=== PATIENT | male | born 1965 | race Caucasian/White ===

== ENCOUNTER 2018-03-05 21:49 | Emergency (ER) | payer OTHER ==
[2018-03-05 22:25] VITALS: BP 160/64; PULSE 75; RESP 18; TEMP 97.8
[2018-03-05] MEDS ORDERED: SODIUM CHLORIDE 0.9% 1,000 ML BAG ONE (23:30)
[2018-03-05] MEDS ORDERED: KETOROLAC 30 MG/ML 1 ML VIAL ONE (23:30)
[2018-03-05] MEDS ORDERED: ONDANSETRON 4 MG/2 ML VIAL ONE (23:30)
[2018-03-06 05:40] LABS: Basophils % (A) 0 %; Eosinophils # (A) 0.2 k/uL (0-0.7); Eosinophils % (A) 1 %; HCT 44.7 % (39.0-53.0); HGB 16.4 gm/dL (13.0-17.5); Hyperchromasia Slight; Lymphocytes # (A) 1.9 k/uL (1.0-4.8); Lymphocytes % (A) 13 %; MCH 32.5 pg (25.0-35.0); MCHC 36.7 g/dL (31.0-37.0); MCV 88.6 fL (80.0-100.0); Mean Platelet Volume 6.5; Monocytes # (A) 0.6 k/uL (0-1.0); Monocytes % (A) 4 %; Neutrophils # (A) 11.2 k/uL (1.3-7.7); Neutrophils % (A) 80 %; Platelet Count 395 k/uL (150-450); RBC 5.05 m/uL (4.30-5.90); RDW 12.1 % (11.5-15.5); WBC 14.1 k/uL (3.8-10.6)
[2018-03-06 05:56] LABS: Appearance,Urine Clear (Clear); Bilirubin,Urine Negative (Negative); Blood,Urine Moderate (Negative); Calcium Oxalate Crystals,Urine Occasional /hpf; Color,Urine Yellow; Glucose,Urine (UA) Negative (Negative); Ketones,Urine 2+ (Negative); Leukocyte Esterase,Urine Small (Negative); Mucus,Urine Occasional /hpf; Nitrite,Urine Negative (Negative); PH, Urine 6.5 (5.0-8.0); Protein,Urine 1+ (Negative); RBC,Urine 140 /hpf (0-5); Specific Gravity,Urine 1.014 (1.001-1.035); Urobilinogen,Urine <2.0 mg/dL (<2.0); WBC,Urine 14 /hpf (0-5)
[2018-03-06 06:23] LABS: ALT 46 U/L (21-72); AST 38 U/L (17-59); Albumin 4.7 g/dL (3.5-5.0); Alkaline Phosphatase 69 U/L (38-126); Amylase 110 U/L (30-110); Anion Gap 17 mmol/L; Blood Urea Nitrogen 20 mg/dL (9-20); Calcium 10.5 mg/dL (8.4-10.2); Carbon Dioxide 25 mmol/L (22-30); Chloride 101 mmol/L (98-107); Glucose 107 mg/dL (74-99); Lipase 205 U/L (23-300); Potassium 3.7 mmol/L (3.5-5.1); Sodium 143 mmol/L (137-145); Total Bilirubin 0.4 mg/dL (0.2-1.3); Total Protein 7.6 g/dL (6.3-8.2)
--- NOTE | 2018-03-06 12:42 | CT ---
EXAMINATION TYPE: CT abdomen pelvis wo con DATE OF EXAM: 03/06/2018 COMPARISON: NONE HISTORY: Right flank pain CT DLP: mGycm Automated exposure control for dose reduction was used. TECHNIQUE: Helical acquisition of images was performed from the lung bases through the pelvis. FINDINGS: Lung bases are clear. There is no pleural effusion. Heart size is normal. Liver spleen pancreas appear normal. Bile ducts are not dilated. Gallbladder appears normal. There are multiple bilateral renal calculi. These measure up to 12 mm. There is an 8 mm calculus in t he proximal right ureter with right-sided hydronephrosis. This is near the ureteropelvic junction. There is no retroperitoneal adenopathy. I see no intestinal wall thickening. There are no dilated loo ps. Prostate is slightly enlarged with calcification. Bladder distends smoothly. There is no ascites. There is no sign of free air. Appendix is not definitely seen. I see no bony destructive process. IMPRESSION: MULTIPLE RENAL CALCULI. OBSTRUCTING 8 MM CALCULUS IN THE PROXIMAL RIGHT URETER. SPONDYLOTIC CHANGES N OTED IN THE LUMBAR SPINE.
== END 2018-03-06 01:24 | disposition home or self-care (01) ==
LOC: EC 21:49
DX: N20.1 Calculus of ureter (principal); Z87.891 Personal history of nicotine dependence; Z79.1 Long term (current) use of non-steroidal anti-inflammatories (NSAID); Z79.899 Other long term (current) drug therapy; Z87.19 Personal history of other diseases of the digestive system
CPT/HCPCS: 99284; 96374; 96375; 96361; 36415; 80053; 82150; 83690; 85025; 82272; 81001; 74176; J2405; J1885

== ENCOUNTER → 2018-03-11 | Outpatient (CLI) | payer OTHER ==
--- NOTE | 2018-03-11 11:21 | XR ---
EXAMINATION TYPE: XR KUB DATE OF EXAM: 03/11/2018 10:36 AM CLINICAL HISTORY: Nephrolithiasis TECHNIQUE: Single supine KUB image of the abdomen is obtained. COMPARISON: 03/06/2018. FINDINGS: The previously seen 8 mm calculus within the right ureter at the level of the L3-L4 interve rtebral disc space is redemonstrated and has not passed in the interim. There are additional bilatera l renal calculi (at least 3 on the right measuring 6 mm in the upper pole region, 5 mm in the mid gosia e region, and 3 mm in the lower pole region. In the left upper pole region there is a 9 mm calculus. Scattered gas is seen in non-distended small bowel loops. Gas and fecal material is seen in non-diste nded colon. Osseous structures are intact with moderate degenerative changes of the lumbar spine. IMPRESSION: 1. 8mm obstructing right ureteral calculus is located at the L3-L4 intervertebral disc space and has not passed in the interim. 2. Additional bilateral renal calculi, presumed nonobstructing.
[2018-03-11 11:34] LABS: Appearance,Urine Clear (Clear); Bacteria,Urine Occasional /hpf; Bilirubin,Urine Negative (Negative); Blood,Urine Moderate (Negative); Color,Urine Yellow; Glucose,Urine (UA) Negative (Negative); Ketones,Urine Negative (Negative); Leukocyte Esterase,Urine Large (Negative); Mucus,Urine Few /hpf; Nitrite,Urine Negative (Negative); Protein,Urine 1+ (Negative); RBC,Urine 30 /hpf (0-5); Specific Gravity,Urine 1.024 (1.001-1.035); Urobilinogen,Urine <2.0 mg/dL (<2.0); WBC,Urine 51 /hpf (0-5)
== END | disposition home or self-care (01) ==
LOC: RADXRMAIN 10:22
PROVIDERS: ATTEND Urology
DX: N20.2 Calculus of kidney with calculus of ureter (principal)
CPT/HCPCS: 74018; 81001

== ENCOUNTER 2018-04-08 07:12 | Day surgery (SDC) | payer OTHER ==
[2018-04-03 10:52] VITALS: BMI 27.4
[~2018-04-08 07:12] MED LIST: DEXAMETHASONE SOD PHOSPHATE 10 MG/ML 1 ML VIAL IV ONE; LACTATED RINGERS 1,000 ML IV SCH; LIDOCAINE 1% 20 ML VIAL (10MG/ML) FOR IV START INTRADERMA PRN; MORPHINE SULFATE 4 MG/ML SYRINGE IV PRN; ONDANSETRON 4 MG/2 ML VIAL IVP ONE; Pre Op ABX Message 1 EACH MISC MISCELLANE ONE
[2018-04-08 07:54] VITALS: TEMP 98.3
--- NOTE | 2018-04-08 08:09 | XR ---
EXAMINATION TYPE: XR KUB DATE OF EXAM: 04/08/2018 CLINICAL DATA: 53 year-old male right ureteral calculus. Lithotripsy., [facility] COMPARISON: 03/11/2018 FINDINGS: Nonobstructive bowel gas pattern with moderate stool burden. 2 calculi are seen on the right measurin g 6 mm each. One calculus is seen on the left measuring 1 cm. Previous right paramedian mid abdominal calcification is not clearly seen on the current study and may have passed to project over the spine or sacrum. IMPRESSION: Bilateral nephrolithiasis measuring up to 6 mm on the right and 1 cm on the left. The previous right paramedian mid abdominal calcification is not clearly seen on the present exam.
[2018-04-08] MEDS ORDERED: GLYCOPYRROLATE 0.2 MG/ML 2 ML VIAL ONE (08:20)
[2018-04-08] MEDS ORDERED: fentaNYL (PF) 50 MCG/ML 2 ML AMP ONE (08:20)
[2018-04-08] MEDS ORDERED: PROPOFOL 10 MG/ML 20 ML VIAL IV ONE (08:20)
[2018-04-08] MEDS ORDERED: LIDOCAINE 1% INJ 10MG/ML (20 ML MDV) ONE (08:20)
[2018-04-08] MEDS ORDERED: KETAMINE 10 MG/ML 20 ML VIAL ONE (08:20)
[2018-04-08] MEDS ORDERED: MIDAZOLAM 2 MG/2 ML VIAL ONE (08:20)
[2018-04-08] MEDS ORDERED: FUROSEMIDE 10 MG/ML 2 ML VIAL ONE (08:20)
--- NOTE | 2018-04-08 08:54 | P.OP ---
Date of Procedure: 04/08/18 Preoperative Diagnosis: Right ureteral stone Postoperative Diagnosis: Same Procedure(s) Performed: ESWL right, 2500 shocks at level Anesthesia: MAC Surgeon: Mookie Painting Pathology: none sent Condition: stable Disposition: PACU Indications for Procedure: The patient is a 53-year-old gentleman who has bilateral renal stones 6 mm midureteral stone who comes for shockwave lithotripsy Description of Procedure: The right ureteral stone was seen in 2 views of fluoroscopy in the mid ureter. 2500 shocks at energy level administered. Stone appears to fracture. Given 10 mg Lasix during the procedure. Then procedure the patient awake and returned recovery condition. Tell procedure well and will be discharged home upon recovery.
[2018-04-08 09:23] VITALS: BP 113/71; PULSE 73; RESP 18
== END 2018-04-08 10:03 | disposition home or self-care (01) ==
LOC: ORWHC2ENDO 07:12
PROVIDERS: ATTEND Urology
DX: N20.2 Calculus of kidney with calculus of ureter (principal); Z87.891 Personal history of nicotine dependence; F39 Unspecified mood [affective] disorder; Z79.1 Long term (current) use of non-steroidal anti-inflammatories (NSAID); Z79.891 Long term (current) use of opiate analgesic; Z79.899 Other long term (current) drug therapy
CPT/HCPCS: 74018; 50590; J2250; J1100; J1940; J2405; J2001; J3010; J2704

== ENCOUNTER → 2018-04-16 | Outpatient (CLI) | payer OTHER ==
--- NOTE | 2018-04-16 12:06 | XR ---
EXAMINATION TYPE: XR KUB DATE OF EXAM: 04/16/2018 HISTORY: Pain Comparison: None.Single KUB is submitted for interpretation. Findings: Right renal calculi: 6.4 mm calculus mid pole right kidney. Additional calculus upper pole right kidn ey measuring 4.5 mm. Several smaller calculi mid to lower pole right kidney. Right ureteral calculi: Proximal right ureteral calculus noted measuring 6.1 mm overlying the right L 3 transverse process. Left renal calculi: Stable left renal calculus measuring approximately 9.7 mm. Left ureteral calculi: None Visualized. Pelvic calcifications: None Visualized. Bowel gas pattern is unremarkable. No free air. No mass effects. IMPRESSION: 1. Right ureteral calculus and bilateral renal calculi as noted.
== END | disposition home or self-care (01) ==
LOC: RADXRMAIN 11:35
PROVIDERS: ATTEND Urology
DX: N20.2 Calculus of kidney with calculus of ureter (principal)
CPT/HCPCS: 74018

== ENCOUNTER → 2018-05-16 | Outpatient (CLI) | payer OTHER ==
--- NOTE | 2018-05-16 12:39 | XR ---
EXAMINATION TYPE: XR KUB DATE OF EXAM: 05/16/2018 HISTORY: Pain Comparison: None.Single KUB is submitted for interpretation. Findings: Right renal calculi: 5 mm calculus mid pole right kidney. Previously noted calculus overlying the rig ht ureter is is not identified with absolute certainty at this time. Right ureteral calculi: None Visualized. Left renal calculi: No change in left renal calculus measuring approximately 1 cm versus 1 cm previo usly. Left ureteral calculi: None Visualized. Pelvic calcifications: None Visualized. Bowel gas pattern is unremarkable. No free air. No mass effects. IMPRESSION: 1. Bilateral nephrolithiasis. 2. Previously noted or suspected right ureteral calculus is not reproduced at this time.
== END | disposition home or self-care (01) ==
LOC: RADXRMAIN 12:14
PROVIDERS: ATTEND Urology
DX: N20.0 Calculus of kidney (principal)
CPT/HCPCS: 74018

== ENCOUNTER → 2018-06-12 | Outpatient (CLI) | payer OTHER ==
--- NOTE | 2018-06-12 23:41 | MR ---
EXAMINATION TYPE: MR lumbar spine wo con DATE OF EXAM: 06/12/2018 COMPARISON: Prior MRI lumbar spine February 22, 2017 HISTORY: Lumbago per order. Severe low back pain into left buttocks leg and foot for 8 years per angie ent. TECHNIQUE: Multiplanar, multisequence imaging of the lumbar spine is performed without IV contrast. FINDINGS: Sagittal images of the lumbar spine show vertebral body heights to remain satisfactory. Str aightening of lumbar spine is redemonstrated. Multilevel disc desiccation is again seen. There is per sistent advanced disc space narrowing L4-L5 level. There is now advanced disc space narrowing L3-L4 l evel and moderate to advanced disc space narrowing L5-S1 levels. Posterior disc herniations remain pr esent at these levels on sagittal images more prominent versus prior. The conus medullaris remains no rmal in position and signal ending mid L1 level. There is heterogeneous endplate changes L3-S1 levels with predominantly Modic type I and type II degenerative changes redemonstrated. Mild to moderate mu ltilevel anterior spurring is redemonstrated. Axial images at T12-L1 level to remain within normal limits. Axial images at L1-L2 level redemonstrate mild broad disc bulge mildly effacing anterior thecal sac w ith mild facet degenerative changes bilaterally. Bilateral neural foramina are patent. No significant change from prior MRI. Axial images at L2-L3 level show mild broad disc bulge and mild facet degenerative changes bilaterall y. There is mild effacement of the anterior and posterior lateral thecal sac. Bilateral neural forami na are patent. No significant change from prior. Axial images at L3-L4 level show moderate facet degenerative changes and ligamentum flavum hypertroph y. There is moderate to advanced broad disc bulge with posterior spurring. There is effacement of the anterior and posterior lateral thecal sac more prominent versus prior axial image 18. There is persi stent moderate to severe right greater than left neural foraminal narrowing with encroachment on righ t L3 nerve once again suspected sagittal image 11. Can't exclude encroachment at left L3 nerve. No si gnificant change in neural foraminal narrowing from prior. Axial images at L4-L5 level show moderate to advanced facet degenerative changes bilaterally with lig amentum flavum hypertrophy with progression from prior study. There is moderate broad disc bulge with left lateral disc protrusion component. There is effacement of the anterior and posterior lateral th ecal sac. There is moderate to advanced bilateral neural foraminal narrowing with possible early encr oachment on both L4 nerves, left-sided neural encroachment is slightly less prominent versus prior. Axial images at L5-S1 level redemonstrate moderate to advanced facet degenerative changes and ligamen ishaan flavum hypertrophy. There is broad disc bulge identified more prominent versus prior causing ante rior and posterior lateral thecal sac effacement on axial image 7 more prominent versus prior. There is moderate to advanced left greater than right neural foraminal narrowing with encroachment on left L5 nerve present more prominent versus prior and probable encroachment on right L5 nerve redemonstrat ed. Paraspinal muscle bulk is maintained. No suspicious retroperitoneal findings are seen. IMPRESSION: Multilevel degenerative changes in lumbar spine as detailed above quite pronounced for pa tient's age with some progression in findings in mid to lower lumbar levels noted from most recent pr ior MRI.
== END | disposition home or self-care (01) ==
LOC: RADMRIMAIN 21:27
PROVIDERS: ATTEND Psychiatry & Neurology Neurology
DX: M47.816 Spondylosis without myelopathy or radiculopathy, lumbar region (principal)
CPT/HCPCS: 72148

== ENCOUNTER → 2018-06-20 | Outpatient (CLI) | payer OTHER ==
[2018-06-20 14:14] LABS: Anion Gap 9 mmol/L; Blood Urea Nitrogen 17 mg/dL (9-20); Carbon Dioxide 30 mmol/L (22-30); Chloride 102 mmol/L (98-107); Glucose 97 mg/dL (74-99); Potassium 4.9 mmol/L (3.5-5.1); Sodium 141 mmol/L (137-145)
== END | disposition home or self-care (01) ==
LOC: LABWHC1 13:30
PROVIDERS: ATTEND Urology
DX: Z01.812 Encounter for preprocedural laboratory examination (principal); N20.2 Calculus of kidney with calculus of ureter; Z79.899 Other long term (current) drug therapy
CPT/HCPCS: 36415; 80048

== ENCOUNTER 2018-06-26 07:50 | Day surgery (SDC) | payer OTHER ==
[2018-06-19 15:12] VITALS: BMI 26.6
--- NOTE | 2018-06-25 20:28 | P.GSHP ---
History of Present Illness H&P Date: 06/25/18 Chief Complaint: Right renal calculus The patient underwent ESWL treatment of a 5 mm mid right ureteral calculus on . He passed some sand but nothing larger than 1 mm in size. The fragments were calcium oxylate monohydrate/uric acid. KUB on 05/16 did not identify a definite residual ureteral calculus. The patient has a 5 mm calculus that remains in the mid pole of the right kidney. After reviewing treatment options the patient has elected for ureteroscopy with lithotripsy for further treatment of any residual ureteral calculus fragments as well as treatment of the right renal calculus. - Constitutional Constitutional: Denies chills, Denies fever - Cardiovascular Cardiovascular: Denies chest pain, Denies palpitations, Denies shortness of breath - Respiratory Respiratory: Denies cough, Denies wheezing - Gastrointestinal Gastrointestinal: Denies abdominal pain - Genitourinary (Female) Genitourinary: Reports as per HPI Past Medical History Past Medical History: Osteoarthritis (OA) Additional Past Medical History / Comment(s): kidney stones, back pain, left carpal tunnel, right inguinal hernia repair History of Any Multi-Drug Resistant Organisms: None Reported Past Surgical History: Hernia Repair Additional Past Surgical History / Comment(s): BILATERAL INGUINAL HERNIA REPAIR, , LASIK, ESWL right ureteral calculus 04/08/2018 Past Anesthesia/Blood Transfusion Reactions: No Reported Reaction Smoking Status: Former smoker - Past Family History Mother Family Medical History: No Reported History Medications and Allergies Home Medications Medication Instructions Recorded Confirmed Type Citalopram Hydrobromide [CeleXA] 40 mg PO DAILY 03/05/18 06/19/18 History HYDROcodone/APAP 7.5-325MG [[place] 1 tab PO TID 03/05/18 06/19/18 History 7.5-325] Meloxicam [Mobic] 7.5 mg PO DAILY 03/05/18 06/19/18 History buPROPion [Wellbutrin] 100 mg PO BID 03/05/18 06/19/18 History Dextroamphetamine/Amphetamine 20 mg PO BID 06/19/18 06/19/18 History [Adderall] LORazepam [Ativan] 1 mg PO DAILY 06/19/18 06/19/18 History Allergies Allergy/AdvReac Type Severity Reaction Status Date / Time No Known Allergies Allergy Verified 06/19/18 15:02 Surgical - Exam - General well developed, well nourished, no distress - ENT no hearing loss - Neck no masses, no lymphadectomy - Cardiovascular Rhythm: regular Abnormal Heart Sounds: no systolic murmur, no diastolic murmur - Abdomen Abdomen: soft, non tender, no organomegaly - Genitourinary normal penis with no external lesions, testicles non-tender Assessment and Plan (1) Right kidney stone Narrative/Plan: The patient will undergo cystoscopy with right ureteropyeloscopy for treatment of any residual right ureteral calculus fragments as well as treatment of the right renal caculus. He is aware of the risks which include anesthesia, bleeding , infection, ureteral injury and the possible need for a JJ catheter post op. Status: Acute Code(s): N20.0 - CALCULUS OF KIDNEY SNOMED Code(s): 93762258
[~2018-06-26 07:50] MED LIST changes: -LACTATED RINGERS 1,000 ML IV SCH; +MIDAZOLAM 2 MG/2 ML VIAL IV PRN; -MORPHINE SULFATE 4 MG/ML SYRINGE IV PRN; -Pre Op ABX Message 1 EACH MISC MISCELLANE ONE; +ceFAZolin 1,000 MG in DEXTROSE/WATER 1 50ML.BAG IVPB ONE; +fentaNYL (PF) 50 MCG/ML 2 ML AMP IV PRN
[2018-06-26] MEDS: LACTATED RINGERS 1,000 ML IV SCH ×2 (08:33→09:35)
[2018-06-26] MEDS ORDERED: MIDAZOLAM 2 MG/2 ML VIAL ONE (09:37)
[2018-06-26] MEDS ORDERED: PROPOFOL 10 MG/ML 20 ML VIAL IV ONE (09:37)
[2018-06-26] MEDS ORDERED: fentaNYL (PF) 50 MCG/ML 2 ML AMP ONE (09:37)
[2018-06-26] MEDS ORDERED: LIDOCAINE 1% INJ 10MG/ML (20 ML MDV) ONE (09:37)
[2018-06-26] MEDS ORDERED: IOPAMIDOL-370 50ML BTL MISCELLANE ONE ×2 (09:56)
[2018-06-26] MEDS ORDERED: LACTATED RINGERS 1,000 ML IV ONE (11:12)
[2018-06-26 11:40] VITALS: TEMP 97.4
--- NOTE | 2018-06-26 12:02 | P.OP ---
Date of Procedure: 06/26/18 Preoperative Diagnosis: Right ureteral and right renal calcului Postoperative Diagnosis: Right ureteral and right renal calcului Procedure(s) Performed: Cystoscopy with right retrograde ureterogram, right ureteroscopy with lithotripsy for treatment of right ureteral calculus and right ureteropyeloscopy with lithotripsy for treatment of right renal calculus. Placement of right double-J catheter. Anesthesia: GETA Surgeon: Gareth Torres Estimated Blood Loss (ml): 0 Pathology: other (Fragments of right ureteral and right renal calculi) Condition: stable Disposition: PACU Indications for Procedure: The patient is a 53-year-old male with a history of urolithiasis who underwent ESWL treatment of a mid right ureteral calculus on 04/08/2018. The patient only past sand following the procedure. A KUB was nondiagnostic as far as confirming any residual calculus in the ureter. The patient does have a 5 mm right renal calculus. Right ureteroscopy is planned to reevaluate the ureter with the intent of removing any residual ureteral calculus. Treatment of the right renal calculus is planned under the same anesthetic. Description of Procedure: The patient was taken to the operating suite where adequate general anesthesia via orotracheal intubation was instituted. The patient was placed in the dorsal lithotomy position with his legs suspended from padded German stirrups. Sequential pneumatic compression stockings were applied to the lower legs. The genitalia was prepped with Betadine soap, painted with Betadine solution and draped in a sterile fashion. The penile and prostatic urethra traversed under direct vision using the 19-Maltese cystoscope sheath and 30 lens. Anterior urethra is unremarkable. The prostatic urethra showed evidence of mild lateral lobe enlargement consistent with the patient's age. The bladder was examined. Both ureteral orifice ease were normal location and configuration. A 1-2 mm oculus fragment was noted on the floor the bladder. A right retrograde ureterogram was performed using an 8-Maltese cone-tipped catheter. A filling defect consistent with a ureteral calculus was identified in the right ureter at the L4 level. A 0.035 straight Glidewire was advanced through the right ureteral orifice and then under fluoroscopic guidance up to the region of the renal pelvis. The cystoscope was withdrawn leaving the Glidewire in place. A 13-Maltese ureteral reentry sheath with 11-Maltese obturator was advanced over the Glidewire using fluoroscopy for guidance and positioned so that the proximal and of the reentry sheath was near the pelvic brim. Uteroscopy was performed using the flexible ureteroscope. The calculus in the right ureter was identified. It was broken down into multiple small fragments using the 365 fiber and the holmium laser at a setting of 600 mJ and 6 cps. The calculus fragments were then removed from the ureter using a 1.9-Maltese nitinol stone basket. All fragments were removed from the ureter. The 0.035 Glidewire was then readvanced through the reentry sheath and the Maltese obturator was advanced over it and into the reentry sheath. The reentry sheath was then repositioned so that the proximal and of the reentry sheath was in the proximal ureter. Ureteroscopy and pyeloscopy was then performed using the flexible ureteroscope. A small calculus fragments were noted in a middle pole calyx and will broken down and removed using the nitinol stone basket. A 5 mm calculus was identified in a different middle pole calyx. This was broken down using the holmium laser setting of 600 mJ and 6 cps. The calculus fragments were then removed. Completion procedure all calculus fragments larger than 1 mm had been removed. The remaining calyces were examined and no additional calculi were noted. Ureteroscope was withdrawn along with the reentry sheath and ureter was reexamined to ensure no fragments remained. The cystoscope was reintroduced into the bladder. The Glidewire was advanced through the right ureteral orifice and up to the region of the renal pelvis. A 6-Maltese by 24 cm double-J catheter was then advanced over the Glidewire and positioned so that the proximal end coiled in the region of the renal pelvis and the distal and coiled in the bladder. The bladder was drained and the cystoscope was withdrawn. The patient tolerated procedure well and left the operative room awake and in satisfactory condition. There is no blood loss. Patient will be discharged and will return in approximately 1 week at which time his double-J catheter will be removed.
[2018-06-26 12:41] VITALS: RESP 18
[2018-06-26] MEDS ORDERED: KETOROLAC 30 MG/ML 1 ML VIAL IVP ONE (12:49)
[2018-06-26] MEDS ORDERED: HYDROmorphone 1 MG/ML 1 ML SYRINGE IVP ONE (12:50)
[2018-06-26 13:09] VITALS: BP 130/89; PULSE 57
--- NOTE | 2018-06-26 16:13 | FL ---
Fluoroscopy HISTORY: Right ureteral calculus 40 seconds fluoroscopy time supplied to the referring clinician. 1 intraoperative C-arm images docum ent the procedure. See dictated report from urology.
== END 2018-06-26 13:40 | disposition home or self-care (01) ==
LOC: OR 07:50
PROVIDERS: ATTEND Urology
DX: N20.2 Calculus of kidney with calculus of ureter (principal); Z87.442 Personal history of urinary calculi; M19.90 Unspecified osteoarthritis, unspecified site; Z87.891 Personal history of nicotine dependence; F39 Unspecified mood [affective] disorder; Z79.1 Long term (current) use of non-steroidal anti-inflammatories (NSAID); Z79.891 Long term (current) use of opiate analgesic; Z79.899 Other long term (current) drug therapy
CPT/HCPCS: 82365; 74420; 52353; C1758 ×2; C1769; J2250; J1100; J2405; J2001; J3010; J1885; J1170; J0690; J2704; Q9967

== ENCOUNTER → 2018-07-30 | Outpatient (CLI) | payer OTHER ==
--- NOTE | 2018-07-31 08:09 | CT ---
EXAMINATION TYPE: CT abdomen pelvis w con DATE OF EXAM: 07/30/2018 COMPARISON: 03/05/2018 HISTORY: inguinal and umbilical hernia CT DLP: 1075 mGycm CONTRAST: CT scan of the abdomen and pelvis is performed with Oral Contrast and with IV Contrast, patient injec anh with 100 mL of Isovue 300. FINDINGS: LUNG BASES-: No visible nodule. No infiltrate. LIVER/GB: No calcified gallstones. No space occupying hepatic lesion. Biliary tree is of normal ca liber. PANCREAS: No inflammation. No distinct mass. SPLEEN: No splenic enlargement. No lesion seen. ADRENALS: No nodule. No thickening. KIDNEYS/BLADDER: No hydronephrosis. Nonobstructing nephrolithiasis of the left kidney measures 1 cm. 4 mm calcification upper pole the right kidney is also nonobstructing. No distinct renal mass. Urin abhijeet bladder grossly unremarkable. BOWEL: Normal appendix. Normal bowel caliber. No inflammation. GENITAL ORGANS: No gross abnormality. LYMPH NODES: No greater than 1cm abdominal or pelvic lymph nodes are appreciated. AORTA: No significant abnormality. OSSEOUS STRUCTURES: No significant abnormality is seen. OTHER: Small fat-containing umbilical hernia. No evidence for inguinal hernia this time. IMPRESSION: 1. Nonobstructing nephrolithiasis. 2. Small fat-containing umbilical hernia.
== END ==
LOC: RADCTMAIN 17:31
PROVIDERS: ATTEND Surgery
DX: K42.9 Umbilical hernia without obstruction or gangrene (principal); N20.0 Calculus of kidney
CPT/HCPCS: 74177; Q9967

== ENCOUNTER → 2018-08-06 | Outpatient (CLI) | payer OTHER ==
--- NOTE | 2018-08-06 15:48 | US ---
EXAMINATION TYPE: US kidneys/renal and bladder DATE OF EXAM: 08/06/2018 COMPARISON: Abdomen pelvis CT dated 07/30/2018 CLINICAL HISTORY: N13.30 Hydronephrosis. Post right renal lithotripsy and laser procedure end of May per patient EXAM MEASUREMENTS: Right Kidney: 9.5 x 5.7 x 4.2 cm Left Kidney: 10.3 x 4.7 x 4.9 cm Post Void Residual Volume: 5.2 mL Right Kidney: upper pole shadowing stone is noted = 0.6 x 0.5 x 0.4cm Left Kidney: upper mid pole clustered calcification = 1.5 x 1.0 x 0.8cm; small upper pole simple cyst seen =0.5 x 0.5 x 0.5cm. Bladder: wnl Bilateral Jets seen: yes Normal Post Void Residual: yes . Echogenic foci persist within the kidneys as described. Cortical medullary differentiation is maintai junior. IMPRESSION: Bilateral nephrolithiasis.
== END ==
LOC: RADUSWWP 13:33
PROVIDERS: ATTEND Urology
DX: N20.0 Calculus of kidney (principal)
CPT/HCPCS: 76770

== ENCOUNTER 2018-08-14 09:23 | Day surgery (SDC) | payer OTHER ==
[2018-08-09 11:24] VITALS: BMI 27.4
[~2018-08-14 09:23] MED LIST changes: -DEXAMETHASONE SOD PHOSPHATE 10 MG/ML 1 ML VIAL IV ONE; +HYDROmorphone 0.5 MG/0.5 ML SYRINGE IVP PRN; +LACTATED RINGERS 1,000 ML IV SCH; -MIDAZOLAM 2 MG/2 ML VIAL IV PRN; -ONDANSETRON 4 MG/2 ML VIAL IVP ONE; -ceFAZolin 1,000 MG in DEXTROSE/WATER 1 50ML.BAG IVPB ONE; -fentaNYL (PF) 50 MCG/ML 2 ML AMP IV PRN
[2018-08-14 10:14] VITALS: TEMP 97.8
[2018-08-14] MEDS ORDERED: LIDOCAINE 1% INJ 10MG/ML (20 ML MDV) ONE (11:15)
[2018-08-14] MEDS ORDERED: PROPOFOL 10 MG/ML 20 ML VIAL IV ONE (11:15)
--- NOTE | 2018-08-14 11:22 | P.GSHP ---
History of Present Illness H&P Date: 08/14/18 Chief Complaint: GI bleed This a 53-year-old male referred from Dr. Chau Singh. Patient is today for colonoscopy. He's had issues with GI bleed. Past Medical History Past Medical History: Osteoarthritis (OA) Additional Past Medical History / Comment(s): kidney stones, back pain, arthritis History of Any Multi-Drug Resistant Organisms: None Reported Past Surgical History: Hernia Repair Additional Past Surgical History / Comment(s): BILATERAL INGUINAL HERNIA REPAIR, , LASIK Past Anesthesia/Blood Transfusion Reactions: No Reported Reaction Additional Drug Use History / Comment(s): USES DAILY- MEDICAL CARD - Past Family History Mother Family Medical History: No Reported History Medications and Allergies Home Medications Medication Instructions Recorded Confirmed Type Citalopram Hydrobromide [CeleXA] 40 mg PO DAILY 03/05/18 08/14/18 History HYDROcodone/APAP 7.5-325MG [[place] 1 tab PO TID 03/05/18 08/14/18 History 7.5-325] Meloxicam [Mobic] 7.5 mg PO DAILY 03/05/18 08/09/18 History buPROPion [Wellbutrin] 100 mg PO BID 03/05/18 08/14/18 History Dextroamphetamine/Amphetamine 20 mg PO BID 06/19/18 08/14/18 History [Adderall] LORazepam [Ativan] 1 mg PO DAILY 06/19/18 08/14/18 History ARIPiprazole [Abilify] 5 mg PO QAM 08/09/18 08/14/18 History Allergies Allergy/AdvReac Type Severity Reaction Status Date / Time No Known Allergies Allergy Verified 08/14/18 10:08 Surgical - Exam Vital Signs Temp Pulse Resp BP Pulse Ox 97.8 F 74 16 106/69 98 08/14/18 10:08 08/14/18 10:08 08/14/18 10:08 08/14/18 10:08 08/14/18 10:08 - General well developed, no distress - Eyes PERRL - ENT normal pinna - Neck no masses - Respiratory normal expansion - Cardiovascular Rhythm: regular - Abdomen Abdomen: soft, non tender Assessment and Plan Assessment: GI bleed. We'll perform colonoscopy.
--- NOTE | 2018-08-14 11:36 | P.OP ---
Date of Procedure: 08/14/18 Preoperative Diagnosis: GI bleed Postoperative Diagnosis: Normal colon Procedure(s) Performed: Colonoscopy Anesthesia: MAC Surgeon: Modesto Huynh Pathology: none sent Condition: stable Disposition: PACU Description of Procedure: PROCEDURE: The patient was placed on the endoscopy table in the lateral position. Digital rectal examination was performed which revealed no abnormalities. The prostate was symmetrical without nodules. Flexible colonoscope was then placed in the patient's anus and passed throughout the entire colon. The ileocecal valve was visualized. The cecum, ascending, transverse, descending and sigmoid colon were normal. The rectum was normal as well. There were no masses, polyps or diverticula noted in the entire colon. SUMMARY OF FINDINGS: Normal colonoscopy.
[2018-08-14 12:01] VITALS: RESP 18
[2018-08-14 12:23] VITALS: BP 128/78; PULSE 67
== END 2018-08-14 12:33 | disposition home or self-care (01) ==
LOC: ORWHC2ENDO 09:23
PROVIDERS: ATTEND Surgery
DX: K92.2 Gastrointestinal hemorrhage, unspecified (principal); M19.90 Unspecified osteoarthritis, unspecified site; F98.8 Other specified behavioral and emotional disorders with onset usually occurring in childhood and adolescence; Z87.442 Personal history of urinary calculi; Z79.1 Long term (current) use of non-steroidal anti-inflammatories (NSAID); Z79.891 Long term (current) use of opiate analgesic; Z79.899 Other long term (current) drug therapy
CPT/HCPCS: 45378; J2001; J2704

== ENCOUNTER 2018-08-27 06:08 | Day surgery (SDC) | payer OTHER ==
[2018-08-19 15:23] VITALS: BMI 26.6
[~2018-08-27 06:08] MED LIST changes: +HEPARIN SODIUM,PORCINE 5,000 UNIT/ML 1 ML VIAL SQ ONE; -LIDOCAINE 1% 20 ML VIAL (10MG/ML) FOR IV START INTRADERMA PRN; +ceFAZolin IN SWFI 2 GM/20 ML SYRINGE IVP ONE
[2018-08-27] MEDS ORDERED: MIDAZOLAM 2 MG/2 ML VIAL IVP ONE (07:02)
[2018-08-27] MEDS ORDERED: LACTATED RINGERS 1,000 ML IV ONE (07:14)
[2018-08-27] MEDS ORDERED: DEXAMETHASONE SOD PHOS (MDV) 100 MG/10 ML VIAL IVP ONE (07:15)
[2018-08-27] MEDS: ONDANSETRON 4 MG/2 ML VIAL IVP ONE ×2 (07:15→10:27)
--- NOTE | 2018-08-27 07:56 | P.GSHP ---
History of Present Illness H&P Date: 08/27/18 Chief Complaint: Umbilical hernia This is a 53-year-old male who presents today for laparoscopic robotic Umbilical hernia repair.. - Constitutional Constitutional: Reports as per HPI Past Medical History Past Medical History: Osteoarthritis (OA) Additional Past Medical History / Comment(s): kidney stones, DDD, herniated discs with back pain, Having numbness and tingling left hand & cant use pinky finger- following up with , Umbilical Hernia History of Any Multi-Drug Resistant Organisms: None Reported Past Surgical History: Hernia Repair Additional Past Surgical History / Comment(s): BILATERAL INGUINAL HERNIA REPAIR , LITHOTRIPSY (MAY 2018), COLONOSCOPY (08/14/18) Past Anesthesia/Blood Transfusion Reactions: No Reported Reaction Past Psychological History: Anxiety, Depression Smoking Status: Former smoker Past Alcohol Use History: None Reported Additional Past Alcohol Use History / Comment(s): STARTED SMOKING AT AGE 16 QUIT SMOKING AT AGE 20 SMOKED 2-3 PPD Past Drug Use History: Marijuana Additional Drug Use History / Comment(s): USES DAILY- MEDICAL CARD - Past Family History Mother Family Medical History: No Reported History Medications and Allergies Home Medications Medication Instructions Recorded Confirmed Type Citalopram Hydrobromide [CeleXA] 40 mg PO DAILY 03/05/18 08/19/18 History HYDROcodone/APAP 7.5-325MG [Nogal 1 tab PO TID 03/05/18 08/19/18 History 7.5-325] Meloxicam [Mobic] 7.5 mg PO DAILY 03/05/18 08/19/18 History buPROPion [Wellbutrin] 100 mg PO BID 03/05/18 08/19/18 History Dextroamphetamine/Amphetamine 20 mg PO BID 06/19/18 08/19/18 History [Adderall] LORazepam [Ativan] 1 mg PO DAILY 06/19/18 08/19/18 History ARIPiprazole [Abilify] 2 mg PO DAILY 08/19/18 08/19/18 History tiZANidine [Zanaflex] 4 mg PO BID 08/19/18 08/19/18 History Allergies Allergy/AdvReac Type Severity Reaction Status Date / Time No Known Allergies Allergy Verified 08/19/18 14:56 Surgical - Exam Vital Signs Temp Pulse Resp BP Pulse Ox 98.0 F 72 18 140/97 98 08/27/18 06:38 08/27/18 06:38 08/27/18 06:38 08/27/18 06:38 08/27/18 06:38 - General well developed, no distress - Eyes PERRL - ENT normal pinna - Neck no masses - Respiratory normal expansion - Cardiovascular Rhythm: regular - Abdomen Abdomen: soft Hernia: umbilical (Local hernia) Assessment and Plan Assessment: Umbilical hernia. We'll perform laparoscopic robotic assistance repair.
[2018-08-27] MEDS ORDERED: GLYCOPYRROLATE 0.2 MG/ML 2 ML VIAL ONE (08:26)
[2018-08-27] MEDS ORDERED: MIDAZOLAM 2 MG/2 ML VIAL ONE (08:26)
[2018-08-27] MEDS ORDERED: ROPIVACAINE 5 MG/ML 30 ML VIAL ONE (08:26)
[2018-08-27] MEDS ORDERED: fentaNYL (PF) 50 MCG/ML 2 ML AMP ONE (08:26)
[2018-08-27] MEDS ORDERED: SUCCINYLCHOLINE CHLORIDE 100 MG/5 ML SYR IV ONE (08:26)
[2018-08-27] MEDS ORDERED: KETOROLAC 30 MG/ML 1 ML VIAL ONE (08:26)
[2018-08-27] MEDS ORDERED: PROPOFOL 10 MG/ML 20 ML VIAL IV ONE (08:26)
[2018-08-27] MEDS ORDERED: ROCURONIUM BROMIDE 10 MG/ML 10 ML VIAL IV ONE (08:26)
[2018-08-27] MEDS ORDERED: NEOSTIGMINE 1 MG/ML 10 ML VIAL ONE (08:26)
[2018-08-27] MEDS ORDERED: BUPIVACAIN-EPI 0.25%-1:200,000 30 ML VIAL SQ ONE ×2 (08:50)
[2018-08-27 10:00] VITALS: TEMP 97.3
[2018-08-27 10:02] VITALS: RESP 16
[2018-08-27] MEDS: fentaNYL (PF) 50 MCG/ML 2 ML AMP IV PRN ×2 (10:27→10:40)
--- NOTE | 2018-08-27 10:27 | XR ---
EXAMINATION TYPE: XR chest 1V DATE OF EXAM: 08/27/2018 COMPARISON: NONE HISTORY: Postintubation with vomiting, rule out aspiration. TECHNIQUE: Single AP portable frontal upright view of the chest is obtained. FINDINGS: Pneumoperitoneum is felt present. There is no focal air space opacity, pleural effusion, or pneumothorax seen. The cardiac silhouette size is within normal limits. The osseous structures ar e intact. IMPRESSION: No suspicious acute infiltrate. Pneumoperitoneum presumed related to recent intra-abdomi nal surgery, correlate clinically.
[2018-08-27 11:25] VITALS: BP 127/85; PULSE 58
--- NOTE | 2018-08-27 11:41 | P.OP ---
Date of Procedure: 08/27/18 Preoperative Diagnosis: Umbilical hernia Postoperative Diagnosis: Incarcerated umbilical hernia Procedure(s) Performed: Laparoscopic robotic-assisted repair of umbilical hernia Laparoscopic excision of omentum Anesthesia: LAQUITA Surgeon: Modesto Huynh Estimated Blood Loss (ml): 5 Pathology: other (Incarcerated fat/omentum) Condition: stable Disposition: PACU Description of Procedure: The patient was placed on the operating table in the supine position. He received general anesthesia. His abdomen was prepped and draped usual fashion. Using a 5 mm optical trocar under direct visualization the peritoneal cavity was entered in the left upper quadrant. The abdomen was then insufflated. The laparoscope was placed back into the perineal cavity. Next a 8 mm robotic trocar was placed in the left lower quadrant and a 12 mm robotic trocar was placed in the left lateral position. The original 5 mm trocar was exchanged for a 8 mm robotic trocar. The patient's placed in the left side up position. And the patient was undocked the robot. The umbilical hernia was visualized. There was incarcerated fat and omentum in the hernia. Using hook cautery the incarcerated fat and omentum was transected and reduced. Using hook cautery the peritoneum over the umbilical hernia was excised. The fascial opening was repaired using 0V LOC suture. Next a piece of 11 cm round ventral light ST mesh was placed into the. Cavity and secured with 2 OV lock suture. The patient was undocked the robot. The needles were retrieved. The incarcerated fat/omentum was retrieved. The fascia of the 12 mm trocar site was closed with 0 Ethibond suture. Skin was closed interrupted 3-0 Monocryl suture. Dermabond dressings was applied. Patient top procedure well and was sent to recovery room stable condition.
--- NOTE | 2018-08-27 13:03 | P.ONQ ---
Anesthesiology Proc Note - PNB - Peripheral Nerve Block Performed Bilateral Rectus Abdominis Single Time Out Performed: Yes Procedure Start Time: 07:05 Procedure Stop Time: 07:10 Indication: Acute Post-Operative Pain, Requested by physician Sedation Type: Sedate with meaningful contact maintained Preparation: Sterile Prep Position: Supine Needle Size: 50mm (2") Needle Gauge: 21 Technique: Ultrasound Injectate: 0.5% Ropivacaine (see comment for volume) (ropi .5% 15cc each side) Blood Aspirated: No Pain Paresthesia on Injection Noted: No Resistance on Injection: Normal Events: Uneventful and Well Tolerated
== END 2018-08-27 11:53 | disposition home or self-care (01) ==
LOC: OR 06:08
PROVIDERS: ATTEND Surgery
DX: K42.0 Umbilical hernia with obstruction, without gangrene (principal); K66.8 Other specified disorders of peritoneum; M19.90 Unspecified osteoarthritis, unspecified site; R20.0 Anesthesia of skin; R20.2 Paresthesia of skin; F41.9 Anxiety disorder, unspecified; F32.9 Major depressive disorder, single episode, unspecified; F98.8 Other specified behavioral and emotional disorders with onset usually occurring in childhood and adolescence; Z79.1 Long term (current) use of non-steroidal anti-inflammatories (NSAID); Z79.891 Long term (current) use of opiate analgesic; Z79.899 Other long term (current) drug therapy; Z87.442 Personal history of urinary calculi; Z87.891 Personal history of nicotine dependence
CPT/HCPCS: 64488; 88305; 71045; 49653; C1781; J2250; J1644; J2710; J2405; J3010; J1885; J1100; J2795; J0330; J2704; J0690

== ENCOUNTER → 2018-10-08 | Outpatient (CLI) | payer OTHER ==
[2018-10-08 14:47] LABS: Anion Gap 9 mmol/L; Blood Urea Nitrogen 16 mg/dL (9-20); Calcium 9.7 mg/dL (8.4-10.2); Carbon Dioxide 29 mmol/L (22-30); Chloride 101 mmol/L (98-107); Glucose 85 mg/dL (74-99); Potassium 4.3 mmol/L (3.5-5.1); Sodium 139 mmol/L (137-145)
== END ==
LOC: LABPAT 13:35
PROVIDERS: ATTEND Urology
DX: Z01.812 Encounter for preprocedural laboratory examination (principal); N20.0 Calculus of kidney
CPT/HCPCS: 36415; 80048

== ENCOUNTER 2018-10-16 05:43 | Day surgery (SDC) | payer OTHER ==
[2018-10-08 14:50] VITALS: BMI 27.4
--- NOTE | 2018-10-14 21:29 | P.GSHP ---
History of Present Illness H&P Date: 10/14/18 Chief Complaint: Left renal calculus The patient is a 53-year-old male with a history of urolithiasis who originally underwent ESWL treatment of a mid right ureteral calculus in 03/2018. The calculus was composed primarily of calcium oxalate monohydrate. He underwent right ureteroscopy with lithotripsy for treatment of a calculus in the upper pole of the right kidney in 06/2018. He continues to have a 7x9x10 mm calculus in the upper pole of the left kidney and after reviewing treatment options has elected to proceed with left ureteroscopy with lithotripsy. - Constitutional Constitutional: Denies chronic pain, Denies weight gain, Denies weight loss - Cardiovascular Cardiovascular: Denies chest pain, Denies shortness of breath, Denies syncope - Respiratory Respiratory: Denies cough, Denies wheezing - Gastrointestinal Gastrointestinal: Denies abdominal pain, Denies heartburn - Genitourinary (Male) Genitourinary: Denies flank pain, Denies hematuria Past Medical History Past Medical History: Hypertension, Osteoarthritis (OA) Additional Past Medical History / Comment(s): kidney stones, varicose veins, History of Any Multi-Drug Resistant Organisms: None Reported Past Surgical History: Hernia Repair Additional Past Surgical History / Comment(s): janneth inguinal hernia, umbilical hernia repair, LASIK, ESWL, mid right ureteral calculus 03/2018, right ureteroscopy with lithotripsy 06/2018 Past Anesthesia/Blood Transfusion Reactions: No Reported Reaction Smoking Status: Former smoker - Past Family History Mother Family Medical History: No Reported History Medications and Allergies Home Medications Medication Instructions Recorded Confirmed Type Citalopram Hydrobromide [CeleXA] 40 mg PO DAILY 03/05/18 10/08/18 History HYDROcodone/APAP 7.5-325MG [Corwith 1 tab PO TID PRN 03/05/18 10/08/18 History 7.5-325] buPROPion [Wellbutrin] 100 mg PO BID 03/05/18 10/08/18 History Dextroamphetamine/Amphetamine 20 mg PO BID 06/19/18 10/08/18 History [Adderall] LORazepam [Ativan] 1 mg PO DAILY 06/19/18 10/08/18 History ARIPiprazole [Abilify] 2 mg PO DAILY 08/19/18 10/08/18 History tiZANidine [Zanaflex] 4 mg PO BID 08/19/18 10/08/18 History Meloxicam 15 mg PO DAILY 10/08/18 10/08/18 History Allergies Allergy/AdvReac Type Severity Reaction Status Date / Time No Known Allergies Allergy Verified 10/08/18 14:39 Surgical - Exam - General well developed, well nourished, no distress - ENT no hearing loss - Neck no masses, no lymphadectomy - Respiratory normal respiratory effort, clear to auscultation - Cardiovascular Rhythm: regular Abnormal Heart Sounds: no systolic murmur, no diastolic murmur - Abdomen Abdomen: soft, no organomegaly Hernia: none - Genitourinary normal penis with no external lesions, testicles non-tender Assessment and Plan (1) Renal calculus, left Narrative/Plan: The patient will undergo cystoscopy with left ureteroscopy and lithotripsy for treatment of his left renal calculus under general anesthesia. He is aware of the operative risks which include anesthesia, bleeding, infection, inability to remove all calculus fragments, injury to the collecting system and probable placement of a double-J catheter postoperatively. Status: Acute Code(s): N20.0 - CALCULUS OF KIDNEY SNOMED Code(s): 26319356
[~2018-10-16 05:43] MED LIST changes: -HEPARIN SODIUM,PORCINE 5,000 UNIT/ML 1 ML VIAL SQ ONE; -HYDROmorphone 0.5 MG/0.5 ML SYRINGE IVP PRN; -LACTATED RINGERS 1,000 ML IV SCH
[2018-10-16] MEDS ORDERED: SCOPOLAMINE 1.5MG/72HR PATCH TRANSDERM ONE (05:53)
[2018-10-16] MEDS ORDERED: HYDROmorphone 1 MG/ML 1 ML SYRINGE IVP PRN (05:53)
[2018-10-16] MEDS ORDERED: ONDANSETRON 4 MG/2 ML VIAL IVP ONE (05:53)
[2018-10-16] MEDS ORDERED: MIDAZOLAM 2 MG/2 ML VIAL IV PRN (05:53)
[2018-10-16] MEDS ORDERED: LACTATED RINGERS 1,000 ML IV SCH (05:53)
[2018-10-16] MEDS ORDERED: DEXAMETHASONE SOD PHOSPHATE 10 MG/ML 1 ML VIAL IV ONE (05:53)
[2018-10-16 06:32] VITALS: RESP 16
[2018-10-16] MEDS ORDERED: LIDOCAINE 1% 20 ML VIAL (10MG/ML) FOR IV START INTRADERMA ONE (06:37)
[2018-10-16] MEDS ORDERED: METOCLOPRAMIDE 5 MG/ML 2 ML VIAL IVP ONE (06:48)
[2018-10-16] MEDS ORDERED: LIDOCAINE 1% INJ 10MG/ML (20 ML MDV) ONE (07:32)
[2018-10-16] MEDS ORDERED: PROPOFOL 10 MG/ML 20 ML VIAL IV ONE (07:32)
[2018-10-16] MEDS ORDERED: NEOSTIGMINE 1 MG/ML 10 ML VIAL ONE (07:32)
[2018-10-16] MEDS ORDERED: GLYCOPYRROLATE 0.2 MG/ML 2 ML VIAL ONE (07:32)
[2018-10-16] MEDS ORDERED: ROCURONIUM BROMIDE 10 MG/ML 10 ML VIAL IV ONE (07:32)
[2018-10-16] MEDS ORDERED: HYDROmorphone (PF) 1 MG/ML ONE (07:32)
[2018-10-16] MEDS ORDERED: fentaNYL (PF) 50 MCG/ML 2 ML AMP ONE (07:32)
[2018-10-16] MEDS ORDERED: MIDAZOLAM 2 MG/2 ML VIAL ONE (07:32)
--- NOTE | 2018-10-16 08:26 | XR ---
EXAMINATION TYPE: XR KUB DATE OF EXAM: 10/16/2018 HISTORY: Pain Comparison: 05/16/2018 Single KUB is submitted for interpretation. Overlying bowel content limits evaluation. Findings: Right renal calculi: Previously noted 5 mm calculus right kidney is not redemonstrated at this time. Overlying bowel content limits evaluation. Right ureteral calculi: None Visualized. Left renal calculi: There appears to be 4.2 mm calculus mid pole left kidney. Priestly noted large 1 0.4 mm calculus not redemonstrated. Left ureteral calculi: None Visualized. Pelvic calcifications: None Visualized. Bowel gas pattern is unremarkable. No free air. No mass effects. IMPRESSION: 1. Previously noted calculi are not clearly visualized at this time. Cannot exclude a 4.2 mm calculus left kidney.
[2018-10-16 09:22] VITALS: TEMP 98.4
--- NOTE | 2018-10-16 09:26 | P.OP ---
Date of Procedure: 10/16/18 Preoperative Diagnosis: Left renal calculus Postoperative Diagnosis: Left renal calculus Procedure(s) Performed: Cystoscopy with left ureteroscopy lithotripsy and placement of left double-J catheter Anesthesia: LAQUITA Surgeon: Gareth Torres Estimated Blood Loss (ml): 0 Pathology: other (calculus fragments) Condition: stable Disposition: PACU Indications for Procedure: The patient is a 53-year-old male with a history of urolithiasis who was discovered to have bilateral renal calculi in 03/2018. At that time he had an obstructive mid right ureteral calculus and 2 right renal calculi. These calculi have been treated. He continues to have a 7 x 8 x 11 mm calculus in the upper pole left kidney. Left ureteroscopy with lithotripsy is planned for treatment. Description of Procedure: The patient was taken the operating suite where adequate general anesthesia via orotracheal intubation was instituted. He was placed in the dorsal lithotomy position with his legs suspended from padded German stirrups. Pneumatic compression stockings were placed on his lower legs. The genitalia was prepped with Betadine solution and draped in a sterile fashion. A 17-Mexican cystoscope sheath with 30 lens was passed through the urethra under direct vision. The anterior urethra was unremarkable. The prostatic urethra showed evidence of moderate lobe enlargement consistent with the patient's age. Bladder was examined. Both ureteral orifices were of normal location and configuration and effluxed clear urine. Bladder was free of tumor foreign body and diverticulum. A 0.035 straight Glidewire was advanced through the left ureteral orifice and then up to the region of the left renal pelvis using fluoroscopic guidance. The cystoscope was withdrawn leaving the Glidewire in place. A 13-Mexican ureteral reentry sheath with 11-Mexican obturator was then advanced over the Glidewire and under fluoroscopic guidance positioned so that the proximal end of the reentry sheath was in the proximal left ureter. The obturator and Glidewire were withdrawn. Ureteroscopy was performed using the flexible ureteroscope. The proximal left ureter and renal pelvis was unremarkable. The calculus was identified in an upper pole calyx. The calculus was broken down into multiple tiny fragments using the 365 fiber and the holmium laser at a setting of 5 mJ and between 15 and 20 cps. The largest calculus fragments were then retrieved using a 1.9-Mexican nitinol stone basket. Ureteroscope was withdrawn. The Glidewire was reintroduced through the reentry sheath and the reentry sheath was withdrawn. The 22-Mexican cystoscope sheath with 30 lens was backloaded over the Glidewire and reintroduced into the bladder. A 6- Mexican by 24 cm double-J catheter was advanced over the Glidewire and positioned so that the proximal end coiled in the region of the renal pelvis and the distal end coiled in the bladder. Cystoscope was withdrawn and the procedure was terminated. The patient tolerated procedure well and left the operative room awake and in satisfactory condition. There was no blood loss. The patient will be discharged later this morning and will return in 1 week for cystoscopy and removal of the double-J catheter.
--- NOTE | 2018-10-16 09:29 | FL ---
Fluoroscopy History: LT urete calc LT urete calc. [address] Torres.
[2018-10-16 10:25] VITALS: BP 146/95; PULSE 86
== END 2018-10-16 10:48 | disposition home or self-care (01) ==
LOC: OR 05:43
PROVIDERS: ATTEND Urology
DX: N20.0 Calculus of kidney (principal); N40.0 Benign prostatic hyperplasia without lower urinary tract symptoms; I10 Essential (primary) hypertension; M19.90 Unspecified osteoarthritis, unspecified site; F41.9 Anxiety disorder, unspecified; F32.9 Major depressive disorder, single episode, unspecified; Z79.1 Long term (current) use of non-steroidal anti-inflammatories (NSAID); Z79.899 Other long term (current) drug therapy; Z87.442 Personal history of urinary calculi; Z87.891 Personal history of nicotine dependence
CPT/HCPCS: 82365; 74018; 52356; C2625; C1769; J2250; J1100; J2710; J2765; J2405; J2001; J3010; J1170; J2704; J0690

== ENCOUNTER → 2018-10-23 | Outpatient (CLI) | payer OTHER ==
--- NOTE | 2018-10-23 09:37 | XR ---
EXAMINATION TYPE: XR KUB DATE OF EXAM: 10/23/2018 HISTORY: Pain Comparison: 10/08/2018 Single KUB is submitted for interpretation. Findings: Right renal calculi: 7.8 mm calculus mid to upper pole left kidney. Right ureteral calculi: Double-pigtail left ureteral stent is in place. No definite calculus along th e course of the stent. Left renal calculi: Difficult to exclude the calcification upper pole right kidney measuring 4.9 mm. Left ureteral calculi: None Visualized. Pelvic calcifications: None Visualized. Bowel gas pattern is unremarkable. No free air. No mass effects. IMPRESSION: 1. Left-sided ureteral stent as noted. 2. Bilateral nephrolithiasis.
== END | disposition home or self-care (01) ==
LOC: RADXRMAIN 09:10
PROVIDERS: ATTEND Urology
DX: N20.0 Calculus of kidney (principal); Z96.0 Presence of urogenital implants
CPT/HCPCS: 74018

== ENCOUNTER → 2018-12-05 | Outpatient (CLI) | payer OTHER ==
--- NOTE | 2018-12-05 12:43 | XR ---
EXAMINATION TYPE: XR KUB DATE OF EXAM: 12/05/2018 CLINICAL HISTORY: History of nephrolithiasis TECHNIQUE: Single supine abdominal radiograph was obtained COMPARISON: 10/23/2018. FINDINGS: The previously seen left ureteral stent has been removed. There is a stable approximately 8 mm left renal calculus. The previously seen 5 mm right renal calculus is not visualized and may have passed in the interim or may be obscured by overlying bowel. No new calculi are seen along the course s of the ureter. Punctate stable left pelvic phlebolith is unchanged from the prior. There is a mild levoscoliosis of the lumbar spine with advanced degenerative changes of the lower lumbosacral spine. Moderate femoral acetabular arthropathy is seen bilaterally. No dilated bowel. IMPRESSION: Interval removal of the left ureteral stent with stable positioning of an 8mm left renal calculus. Nonvisualization of the right renal calculus that may have passed in the interim or may be obscured by overlying bowel.
== END | disposition home or self-care (01) ==
LOC: RADXRMAIN 11:45
PROVIDERS: ATTEND Urology
DX: N20.0 Calculus of kidney (principal)
CPT/HCPCS: 74018

== ENCOUNTER → 2018-12-09 | Day surgery (SDC) | payer OTHER ==
--- NOTE | 2018-11-27 07:38 | P.GSHP ---
History of Present Illness H&P Date: 11/27/18 Chief Complaint: Left renal calculus and The patient is a 53-year-old male with a history of calcium oxalate urolithiasis. He had bilateral renal calculi and an obstructive right ureteral calculus in 03/2018. The ureteral calculus was treated with ESWL but did not initially appear to fragment. Right ureteroscopy with removal of the remaining fragments and treatment of the right renal calculus was performed in 06/2018. An attempt was made to treat the calculus in the lower pole of the left kidney in 09/2018 but a 7 mm fragment remained. Due to the difficulty in visualization of the calculus with ureteroscopy the patient has elected to undergo ESWL for treatment of the remaining fragment. He is aware that despite fragmentation, residual pieces of the calculus may remain in the lower pole calyx. - Constitutional Constitutional: Denies weight gain, Denies weight loss (a) - Cardiovascular Cardiovascular: Denies chest pain, Denies palpitations, Denies shortness of breath - Respiratory Respiratory: Denies cough (aa), Denies wheezing (an) - Gastrointestinal Gastrointestinal: Denies abdominal pain - Genitourinary (Female) Genitourinary: Denies hematuria (a) Past Medical History Past Medical History: Osteoarthritis (OA) Additional Past Medical History / Comment(s): kidney stones, back pain, arthritis History of Any Multi-Drug Resistant Organisms: None Reported Past Surgical History: Hernia Repair Additional Past Surgical History / Comment(s): BILATERAL INGUINAL HERNIA REPAIR, , LASIK, ESWL right ureteral calculus 04/2018, right ureteroscopy with lithotripsy 06/2018, left ureteroscopy with lithotripsy 09/2018 Past Anesthesia/Blood Transfusion Reactions: No Reported Reaction Smoking Status: Never smoker Additional Past Alcohol Use History / Comment(s): STARTED SMOKING AT AGE 16 QUIT SMOKING AT AGE 20 SMOKED 2-3 PPD - Past Family History Mother Family Medical History: No Reported History Medications and Allergies Home Medications Medication Instructions Recorded Confirmed Type Citalopram Hydrobromide [CeleXA] 40 mg PO DAILY 03/05/18 10/16/18 History HYDROcodone/APAP 7.5-325MG [Pierce 1 tab PO TID PRN 03/05/18 10/16/18 History 7.5-325] buPROPion [Wellbutrin] 100 mg PO BID 03/05/18 10/16/18 History Dextroamphetamine/Amphetamine 20 mg PO BID 06/19/18 10/16/18 History [Adderall] LORazepam [Ativan] 1 mg PO DAILY 06/19/18 10/16/18 History ARIPiprazole [Abilify] 2 mg PO DAILY 08/19/18 10/16/18 History tiZANidine [Zanaflex] 4 mg PO BID 08/19/18 10/16/18 History Meloxicam 15 mg PO DAILY 10/08/18 10/16/18 History Ketorolac [Toradol] 10 mg PO Q6HR #10 tab 10/16/18 Rx Allergies Allergy/AdvReac Type Severity Reaction Status Date / Time No Known Allergies Allergy Verified 10/08/18 14:39 Surgical - Exam - General well developed, well nourished, no distress - ENT no hearing loss - Neck no masses, no lymphadectomy - Respiratory normal respiratory effort, clear to percussion, clear to auscultation - Cardiovascular Rhythm: regular Abnormal Heart Sounds: no systolic murmur (in an), no diastolic murmur - Abdomen Abdomen: soft, non tender (aan), no organomegaly - Genitourinary normal penis with no external lesions, testicles non-tender Assessment and Plan (1) Renal calculus, left Narrative/Plan: the patient will undergo ESWL treatment of his left renal calculus performed by . He is aware of the operative risks which include anesthesia, bleeding with hematuria, perinephric or intrarenal hemorrhage, inability to fragment the calculus and ureteral obstruction from the calculus fragments. Status: Acute Code(s): N20.0 - CALCULUS OF KIDNEY SNOMED Code(s): 47026747
[2018-12-05 11:39] VITALS: BMI 27.4
[~2018-12-09] MED LIST changes: +LACTATED RINGERS 1,000 ML IV SCH; +LIDOCAINE 1% 20 ML VIAL (10MG/ML) FOR IV START INTRADERMA ONE; +MIDAZOLAM 2 MG/2 ML VIAL ONE; +PROPOFOL 10 MG/ML 20 ML VIAL IV ONE; +Pre Op ABX Message 1 EACH MISC MISCELLANE ONE; -ceFAZolin IN SWFI 2 GM/20 ML SYRINGE IVP ONE; +fentaNYL (PF) 50 MCG/ML 2 ML AMP ONE
--- NOTE | 2018-12-09 06:55 | XR ---
EXAMINATION TYPE: XR KUB DATE OF EXAM: 12/09/2018 COMPARISON: 12/05/2018 HISTORY: Left-sided kidney stone TECHNIQUE: 2 views FINDINGS: There is no sign of intestinal obstruction or pneumoperitoneum. Fecal pattern is normal. Th ere is irregular 7 mm calculus over the upper pole left kidney. There is a 5 mm calcification over th e right upper quadrant that could be upper pole right renal calculus. Lung bases are clear. There is no evidence of a mass. IMPRESSION: Nonacute abdomen. Left renal calculus unchanged compared to last exam and also CT scan 09/2018. Small calculus upper pole right kidney unchanged compared to CT scan 07/30 18.
--- NOTE | 2018-12-09 08:02 | P.OP ---
Date of Procedure: 12/09/18 Preoperative Diagnosis: Right renal stone Postoperative Diagnosis: Same Procedure(s) Performed: ESWL right 2500 shocks at energy level IV Anesthesia: MAC Surgeon: Mookie Painting Estimated Blood Loss (ml): 0 Pathology: none sent Condition: stable Disposition: PACU Indications for Procedure: Patient is 53. He has a 12 mm right renal stone. He comes for shockwave lithotripsy Description of Procedure: Patient is brought to the operating suite. He is given IV sedation on the lithotripsy table. The stone was seen in 2 views of fluoroscopy. A total 2500 shocks at energy level IV to the stone and its fragments are administered. The stone fractures nicely. At the end of the procedure the patient is awake and returned recovery room good condition. He tolerated procedure well and will be discharged home upon recovery.
[2018-12-09 08:19] VITALS: RESP 16
[2018-12-09 08:52] VITALS: BP 133/87; PULSE 56
--- NOTE | 2018-12-11 06:06 | CDI ---
Date: 12/11/18 CDS/Supervisor Wall [employer] Department Name: Eden Jiang Phone: If any questions, call Jocelin Taveras Paper Cap Machine Operator at [phone] Patient Name: Emmett Doran Admit Date: 12/09/18 Discharge Date: 12/09/18 ATTENTION: The [facility] Coding Staff appreciate your assistance in clarifying documentation. Please respond to the clarification below the line at the bottom and electronically sign. The [facility] Coding staff will review the response and follow-up if needed. Please note: Queries are made part of the Legal Health Record. If you have any questions, please contact the Paper Cap Machine Operator. Dear Dr. Painting, Please provide clarification on the laterality of the kidney stone. The history and physical, physician order and KUB both state left renal stone. Whereas the operative report states right renal stone. Please clarify. Thank you for your kind consideration. it should be a left renal stone MTDD
== END | disposition home or self-care (01) ==
LOC: ORWHC2ENDO 06:10
PROVIDERS: ATTEND Urology
DX: N20.0 Calculus of kidney (principal); Z87.442 Personal history of urinary calculi; M19.90 Unspecified osteoarthritis, unspecified site; Z87.891 Personal history of nicotine dependence; Z79.1 Long term (current) use of non-steroidal anti-inflammatories (NSAID); Z79.899 Other long term (current) drug therapy
CPT/HCPCS: 74018; 50590; J2250; J3010; J2704

== ENCOUNTER → 2018-12-16 | Outpatient (CLI) | payer OTHER ==
--- NOTE | 2018-12-16 10:36 | XR ---
EXAMINATION TYPE: XR KUB DATE OF EXAM: 12/16/2018 HISTORY: History of renal stones with left-sided pain Comparison: 12/09/2018 Single KUB is submitted for interpretation. Findings: Right renal calculi: Nephrolithiasis upper pole right kidney is redemonstrated and partially obscured by bowel content. Calculus measures 6.5 mm. Right ureteral calculi: None Visualized. Left renal calculi: Nephrolithiasis upper pole left kidney is somewhat obscured by bowel content. Th e largest calculus seen previously is not reproduced with certainty. Smaller calculi are seen within the upper pole. Left ureteral calculi: None Visualized. Pelvic calcifications: Stable phlebolith left hemipelvis. Bowel gas pattern is unremarkable. No free air. No mass effects. IMPRESSION: 1. The largest calculus seen previously is not reproduced with certainty. Smaller calculi are seen wi thin the upper pole. 2. Stable right-sided nephrolithiasis.
== END ==
LOC: RADXRMAIN 09:18
PROVIDERS: ATTEND Urology
DX: N20.0 Calculus of kidney (principal)
CPT/HCPCS: 74018

== ENCOUNTER → 2023-10-19 | Outpatient (CLI) | payer OTHER ==
--- NOTE | 2023-10-19 14:59 | US ---
EXAMINATION TYPE: US kidneys/renal and bladder DATE OF EXAM: 10/19/2023 COMPARISON: 08/06/2018 CLINICAL INDICATION: Male, 58 years old with history of N20.0 CALCULUS OF KIDNEY; Hx of renal stones. EXAM MEASUREMENTS: Right Kidney: 9.7 x 4.8 x 4.6 cm Left Kidney: 10.2 x 5.7 x 5.2 cm Limited due to overlying bowel gas Right Kidney: Inferior pole obscured by gas. Multiple echogenic foci seen within, largest measuring 0 .5 x 0.5 x 0.6cm. Left Kidney: Lobular contour. Multiple echogenic foci seen within, largest measuring 1.0 x 0.5 x 0.9c m. Bladder: wnl Bilateral Jets seen: Yes IMPRESSION: 1. Small nonobstructing renal stones. 2. No evidence of hydronephrosis.
== END | disposition home or self-care (01) ==
LOC: RADUSWWP 13:41
PROVIDERS: ATTEND Family Medicine
DX: N20.0 Calculus of kidney (principal)
CPT/HCPCS: 76770